=== PATIENT | male | born 1980 | race Caucasian/White ===

== ENCOUNTER 2023-03-08 14:00 | Outpatient (RCR) | payer OTHER, SELFPAY | END 2023-03-22 15:35 | disposition home or self-care (01) | LOC: HO.OT 14:00 | PROVIDERS: PCP Internal Medicine; Visit Provider Orthopaedic Surgery | DX: Z98.890 Other specified postprocedural states (principal) | CPT/HCPCS: 97035; 97110; 97166 ==